=== PATIENT | female | born 1990 | race African-American/Black ===

== ENCOUNTER 2019-08-22 18:03 | Emergency (ER) | payer BC ==
[~2019-08-22] VITALS: Ht 149.9 cm; Wt 65.8 kg
[~2019-08-22 18:03] MED LIST: ALBU2.5V8 INH; BENZ100C PO; GUAI120L35 PO; PRED20TA PO
[2019-08-22 18:59] VITALS: BP 127/78
[2019-08-22] MEDS ORDERED: DEXAMETHASONE 4 MG TABLET PO STA (19:50)
[2019-08-22] MEDS ORDERED: OSEL75CA PO (19:56)
[2019-08-22] MEDS ORDERED: ONDA4TAB12 PO (19:56)
[2019-08-22] MEDS ORDERED: BENZ100C PO (19:56)
--- NOTE | 2019-08-22 19:57 | PHYS DOC ---
Past Medical History Past Medical History: No Pertinent History Past Surgical History: Tubal ligation Alcohol Use: Occasionally Drug Use: None Adult General Chief Complaint Chief Complaint: FLU SYMPTOM HPI HPI Patient is a 29 year old female who presents with headache, cough, sore throat, fevers, nausea, vomiting that started yesterday. Patient's that she is unsure what her fevers have been running at home she's not checked. The patient states her cough has been really bad. She states that she's also been having runny nose, congestion. Review of Systems Review of Systems Constitutional: Reports fever or chills [] Eyes: Denies change in visual acuity, redness, or eye pain [] HENT: Reports runny nose, nasal congestion and sore throat [] Respiratory: Reports cough. Cardiovascular: No additional information not addressed in HPI [] GI: Reports nausea, and vomiting. Denies abdominal pain, bloody stools or diarrhea [] : Denies dysuria or hematuria [] Musculoskeletal: Reports back pain and body aches. Integument: Denies rash or skin lesions [] Neurologic: Reports headache, denies focal weakness or sensory changes [] Endocrine: Denies polyuria or polydipsia [] Complete systems were reviewed and found to be within normal limits, except as documented in this note. Current Medications Current Medications Current Medications Medications (Trade) Dose Ordered Sig/Elise Start Time Stop Time Status Last Admin Dose Admin Dexamethasone (Decadron) 10 mg 1X STAT 08/22/19 19:50 08/22/19 19:58 DC Allergies Allergies Allergies Coded Allergies Type Severity Reaction Last Updated Verified bismuth subsalicylate Adverse Reaction Severe Anaphylaxis 04/11/19 Yes Physical Exam Physical Exam Constitutional: Well developed, well nourished, no acute distress, non-toxic appearance. [] HENT: Normocephalic, atraumatic, bilateral external ears normal, oropharynx moist, tonsils are 2+/4 with no oral exudates, nose normal. [] Eyes: PERRLA, EOMI, conjunctiva normal, no discharge. [] Neck: Normal range of motion, no tenderness, supple, no stridor. [] Cardiovascular:Heart rate regular rhythm, no murmur [] Lungs & Thorax: Bilateral breath sounds clear to auscultation [] Abdomen: Bowel sounds normal, soft, no tenderness, no masses, no pulsatile masses. [] Skin: Warm, dry, no erythema, no rash. [] Back: No tenderness, no CVA tenderness. [] Extremities: No tenderness, no cyanosis, no clubbing, ROM intact, no edema. [] Neurologic: Alert and oriented X 3, normal motor function, normal sensory function, no focal deficits noted. [] Psychologic: Affect normal, judgement normal, mood normal. [] Current Patient Data Vital Signs Vital Signs Date Time Temp Pulse Resp B/P (MAP) Pulse Ox O2 Delivery O2 Flow Rate FiO2 08/22/19 18:59 99.2 116 24 127/78 (94) 99 Room Air 99.2 EKG EKG [] Radiology/Procedures Radiology/Procedures [] Course & Med Decision Making Course & Med Decision Making Pertinent Labs and Imaging studies reviewed. (See chart for details) The patient appears to have the Flu. Will give Decadron to help with symptoms. Will also give prescriptions for Zofran, Tamiflu, and Tessalon Perles. Recommended to take Zyrtec over the counter. Dragon Disclaimer Dragon Disclaimer This electronic medical record was generated, in whole or in part, using a voice recognition dictation system. Departure Departure Impression: Primary Impression: Influenza Disposition: 01 HOME, SELF-CARE Condition: STABLE Referrals: NO PCP (PCP) Patient Instructions: Viral Syndrome Additional Instructions: Thank you for visiting [facility]. We appreciate you trusting us with your care. If any additional problems come up don't hesitate to return to visit us. Please follow up with your primary care provider so they can plan additional care if needed and know about the problem that you had. If symptoms worsen come back to the Emergency Department. Any concerning symptoms that start such as chest pain, shortness of air, weakness or numbness on one side of the body, running high fevers or any other concerning symptoms return to the ER. Please fill your medications at any pharmacy and follow the prescription instru ctions. Please take Zyrtec over the counter to help with symptoms. Scripts Prochlorperazine Maleate (Compazine) 10 Mg Tablet 1 TAB PO Q6HRS PRN for NAUSEA for 7 Days, #28 TAB 0 Refills Prov: MARGARITA ISRAEL APRN 08/22/19 Benzonatate (TESSALON PERLE) 100 Mg Capsule 100 MG PO TID PRN for COUGH, #21 CAP Prov: MARGARITA ISRAEL APRN 08/22/19 Oseltamivir Phosphate (TAMIFLU) 75 Mg Capsule 75 MG PO BID for FLU for 5 Days, #10 TAB 0 Refills Prov: MARGARITA ISRAEL APRN 08/22/19 Ondansetron (ONDANSETRON ODT) 4 Mg Tab.rapdis 1 TAB PO PRN Q6-8HRS PRN for NAUSEA, #16 TAB Prov: MARGARITA ISRAEL APRN 08/22/19 MARGARITA ISRAEL APRN Aug 22, 2019 19:57
[2019-08-22] MEDS ORDERED: PROC10TA57 PO (20:13)
== END 2019-08-22 20:07 | disposition home or self-care (01) ==
LOC: ER 18:03
DX: J10.1 Influenza due to other identified influenza virus with other respiratory manifestations (principal); R11.2 Nausea with vomiting, unspecified; J02.9 Acute pharyngitis, unspecified; R05 Cough; R50.9 Fever, unspecified; R09.89 Other specified symptoms and signs involving the circulatory and respiratory systems; R09.81 Nasal congestion; M54.9 Dorsalgia, unspecified; Z88.3 Allergy status to other anti-infective agents; Z98.51 Tubal ligation status
CPT/HCPCS: 99283; J8540

== ENCOUNTER 2019-09-05 16:12 | Emergency (ER) | payer BC ==
[~2019-09-05] VITALS: Ht 149.9 cm; Wt 63.5 kg
[~2019-09-05 16:12] MED LIST changes: +ONDA4TAB12 PO; +OSEL75CA PO; +PROC10TA57 PO
[2019-09-05 16:30] VITALS: BP 140/78
--- NOTE | 2019-09-05 16:37 | PHYS DOC ---
Past Medical History Past Medical History: No Pertinent History (JENNIFER DONAHUE APRN) Past Surgical History: Tubal ligation (JENNIFER DONAHUE APRN) Alcohol Use: Occasionally Drug Use: None (JENNIFER DONAHUE APRN) Adult General Chief Complaint Chief Complaint: COUGH HPI HPI Patient is a 29 year old female who presents to the ED today complaining of a cough for 2 weeks. Patient reports she was diagnosed with influenza 2 weeks ago and is still coughing. (JENNIFER DONAHUE APRN) Review of Systems Review of Systems Constitutional: Denies fever or chills [] Eyes: Denies change in visual acuity, redness, or eye pain [] HENT: Denies nasal congestion or sore throat [] Respiratory: Reports cough, shortness of breath [] Cardiovascular: No additional information not addressed in HPI [] GI: Denies abdominal pain, nausea, vomiting, bloody stools or diarrhea [] : Denies dysuria or hematuria [] Musculoskeletal: Denies back pain or joint pain [] Integument: Denies rash or skin lesions [] Neurologic: Denies headache, focal weakness or sensory changes [] All other systems were reviewed and found to be within normal limits, except as documented in this note. (JENNIFER DONAHUE APRN) Allergies Allergies Allergies Coded Allergies Type Severity Reaction Last Updated Verified bismuth subsalicylate Adverse Reaction Severe Anaphylaxis 04/11/19 Yes (MARGARITA ABRAHAM DO) Physical Exam Physical Exam Constitutional: Well developed, well nourished, no acute distress, non-toxic appearance. [] HENT: Normocephalic, atraumatic, bilateral external ears normal, oropharynx moist, no oral exudates, nose normal. [] Eyes: PERRLA, EOMI, conjunctiva normal, no discharge. [] Neck: Normal range of motion, no tenderness, supple, no stridor. [] Cardiovascular:Heart rate regular rhythm, no murmur [] Lungs & Thorax: Bilateral breath sounds clear to auscultation [] Abdomen: Bowel sounds normal, soft, no tenderness, no masses, no pulsatile masses. [] Skin: Warm, dry, no erythema, no rash. [] Back: No tenderness, no CVA tenderness. [] Extremities: No tenderness, no cyanosis, no clubbing, ROM intact, no edema. [] Neurologic: Alert and oriented X 3, normal motor function, normal sensory function, no focal deficits noted. [] Psychologic: Affect normal, judgement normal, mood normal. [] (JENNIFER DONAHUE APRN) Current Patient Data Vital Signs Vital Signs Date Time Temp Pulse Resp B/P (MAP) Pulse Ox O2 Delivery O2 Flow Rate FiO2 09/05/19 16:30 98.3 109 18 140/78 (98) 98 Room Air 98.3 (MARGARITA ABRAHAM DO) EKG EKG [] (JENNIFER DONAHUE APRN) Radiology/Procedures Radiology/Procedures [] (JENNIFER DONAHUE APRN) Course & Med Decision Making Course & Med Decision Making Pertinent Labs and Imaging studies reviewed. (See chart for details) This is a 29-year-old female patient presenting to the ED today complaining of a cough for 2 weeks. Patient reports she was diagnosed with influenza 2 weeks ago. Chest x-ray interpreted by Dr. Abraham is negative. Discharged to home. Provided a note for work. Follow-up with primary care doctor from the list with provided in 1-2 weeks (JENNIFER DONAHUE APRN) Dragon Disclaimer Dragon Disclaimer This electronic medical record was generated, in whole or in part, using a voice recognition dictation system. (JENNIFER DONAHUE APRN) Departure Departure Impression: Primary Impression: Cough in adult Disposition: 01 HOME, SELF-CARE Condition: STABLE Referrals: NO PCP (PCP) follow up in 1-2 weeks Patient Instructions: Cough, Adult, [id number] Additional Instructions: You were evaluated in the emergency room for a cough. It is not unusual after flu diagnosis to have a lingering cough. You can use [id number] remedies. Follow-up with a doctor from the list provided. Attending Signature Attending Signature I have reviewed the PA/MANAGER SECONDARY's note and plan of care. I was available for consultation as needed during the patient's visit in the emergency department. I agree with the clinical impression, plan, and disposition. (MARGARITA ABRAHAM DO) JENNIFER DONAHUE APRN Sep 05, 2019 16:37 MARGARITA ABRAHAM DO Sep 05, 2019 17:53
--- NOTE | 2019-09-05 18:19 | RAD ---
CHEST PA LATERAL History: Cough.. Cardiomediastinal silhouette is not enlarged. No evidence of pneumothorax, pleural effusion or consolidating infiltrate. Bones appear intact. IMPRESSION: No evidence of consolidating infiltrate. Electronically signed by: Leon Henderson MD (09/05/2019 6:16 PM) [id number]
== END 2019-09-05 17:25 | disposition home or self-care (01) ==
LOC: ER 16:12
DX: R05 Cough (principal); R06.02 Shortness of breath; Z98.51 Tubal ligation status; Z88.3 Allergy status to other anti-infective agents
CPT/HCPCS: 71046; 99284

== ENCOUNTER 2020-01-14 11:30 | Emergency (ER) | payer BC ==
[~2020-01-14] VITALS: Ht 149.9 cm; Wt 65.9 kg
[2020-01-14 11:58] VITALS: BP 132/72
[2020-01-14] MEDS ORDERED: PRED50TA PO (12:51)
--- NOTE | 2020-01-14 12:51 | PHYS DOC ---
Past Medical History Past Medical History: No Pertinent History Past Surgical History: Tubal ligation Smoking Status: Current Every Day Smoker Alcohol Use: Occasionally Drug Use: None General Adult EDM: Chief Complaint: SORE THROAT HPI: HPI: Patient is a 29 year old female who presents to the ED today complaining of a sore throat worse on the left side that began this morning. Patient denies any fever, cough, congestion, denies any concerns for COVID19. Review of Systems: Review of Systems: Constitutional: Denies fever or chills. [] Eyes: Denies change in visual acuity. [] HENT: Reports sore throat denies nasal congestion Respiratory: Denies cough or shortness of breath. [] Cardiovascular: Denies chest pain or edema. [] GI: Denies abdominal pain, nausea, vomiting, bloody stools or diarrhea. [] : Denies dysuria. [] Musculoskeletal: Denies back pain or joint pain. [] Integument: Denies rash. [] Neurologic: Denies headache, focal weakness or sensory changes. [] Psychiatric: Denies depression or anxiety. [] Heart Score: Risk Factors: Risk Factors: DM, Current or recent (<one month) smoker, HTN, HLP, family history of CAD, obesity. Risk Scores: Score 0 - 3: 2.5% MACE over next 6 weeks - Discharge Home Score 4 - 6: 20.3% MACE over next 6 weeks - Admit for Clinical Observation Score 7 - 10: 72.7% MACE over next 6 weeks - Early Invasive Strategies Allergies: Allergies: Allergies Coded Allergies Type Severity Reaction Last Updated Verified bismuth subsalicylate Adverse Reaction Severe Anaphylaxis 04/11/19 Yes Physical Exam: PE: Constitutional: Well developed, well nourished, no acute distress, non-toxic appearance. [] HENT: Normocephalic, atraumatic, bilateral external ears normal, oropharynx moist, no oral exudates, nose normal. [] Midline uvula, +2 tonsils bilaterally, no exudate, no erythema. Airways open. Eyes: PERRLA, EOMI, conjunctiva normal, no discharge. [] Neck: Normal range of motion, no tenderness, supple, no stridor. [] Cardiovascular:Heart rate regular rhythm, no murmur [] Lungs & Thorax: Bilateral breath sounds clear to auscultation [] Abdomen: Bowel sounds normal, soft, no tenderness, no masses, no pulsatile masses. [] Skin: Warm, dry, no erythema, no rash. [] Back: No tenderness, no CVA tenderness. [] Extremities: No tenderness, no cyanosis, no clubbing, ROM intact, no edema. [] Neurologic: Alert and oriented X 3, normal motor function, normal sensory function, no focal deficits noted. [] Psychologic: Affect normal, judgement normal, mood normal. [] Current Patient Data: Vital Signs: Vital Signs Date Time Temp Pulse Resp B/P (MAP) Pulse Ox O2 Delivery O2 Flow Rate FiO2 01/14/20 11:58 97.8 90 18 132/72 (92) 100 Room Air 97.8 EKG: EKG: [] Radiology/Procedures: Radiology/Procedures: [] Course & Med Decision Making: Course & Med Decision Making Pertinent Labs and Imaging studies reviewed. (See chart for details) This is a 29-year-old female presenting to the ED today with sore throat for 1 day. Negative rapid strep. Will be discharged with prednisone, salt water gargles also recommended. OTC pain relievers recommended. Given prescription for lidocaine viscous as well. Provided instructions to follow-up with ENT or PCP in 1 to 2 weeks. Return precautions provided. Ebonie Disclaimer: Ebonie Disclaimer: This electronic medical record was generated, in whole or in part, using a voice recognition dictation system. Departure Departure Impression: Primary Impression: Acute pharyngitis Qualified Codes: J02.9 - Acute pharyngitis, unspecified Disposition: HOME, SELF-CARE Condition: STABLE Referrals: NO PCP (PCP) TWILA SZYMANSKI MD follow up in 1 week Patient Instructions: Viral and Bacterial Pharyngitis Additional Instructions: You were seen for acute pharyngitis, your strep test is negative. Take the prescribed medications as ordered. Follow-up with your primary care doctor or the provided ENT in 1 to 2 weeks. Consider using salt water gargles as needed. Come back to the ED at any point symptoms worsen. Scripts Prednisone (PREDNISONE) 50 Mg Tablet 1 TAB PO DAILY, #5 TAB Prov: JENNIFER DONAHUE ELAV 01/14/20 GODFREYJENNIFER ELVA January 14, 2020 12:51
== END 2020-01-14 13:05 | disposition home or self-care (01) ==
LOC: ER 11:30
DX: J02.9 Acute pharyngitis, unspecified (principal); F17.200 Nicotine dependence, unspecified, uncomplicated; Z88.8 Allergy status to other drugs, medicaments and biological substances
CPT/HCPCS: 87070; 87880; 99283

== ENCOUNTER 2020-01-22 11:57 | Emergency (ER) | payer BC ==
[~2020-01-22 11:57] MED LIST changes: +PRED50TA PO
== END 2020-01-22 12:23 | disposition left against medical advice (07) ==
LOC: ER 11:57
DX: J02.9 Acute pharyngitis, unspecified (principal); R05 Cough; Z53.21 Procedure and treatment not carried out due to patient leaving prior to being seen by health care provider

== ENCOUNTER 2021-09-11 08:49 | Emergency (ER) | payer SELFPAY ==
[~2021-09-11] VITALS: Ht 149.9 cm; Wt 79.0 kg
[2021-09-11] MEDS ORDERED: DEXAMETHASONE 4 MG TABLET PO ONE (10:15)
--- NOTE | 2021-09-11 10:16 | PHYS DOC ---
Past Medical History Past Medical History: No Pertinent History Past Surgical History: No Surgical History Smoking Status: Current Every Day Smoker Alcohol Use: Occasionally Drug Use: None General Adult EDM: Chief Complaint: FLU SYMPTOM HPI: HPI: Patient is a 31 year old female who presents with Nasal congestion, headache, sinus pressure, postnasal drip, throat pain, body aches and headache for last day. She states she awoke this morning with 102 fever. She states this morning at 815 she took 2000 mg of Tylenol. She is not vaccinated for Covid. History of smoking. Rates her throat pain 8 out of 10. [] Review of Systems: Review of Systems: Constitutional: + fever or +chills. [] Eyes: Denies change in visual acuity. [] HENT: + nasal congestion or +sore throat. [] Respiratory: Denies cough or shortness of breath. [] Cardiovascular: Denies chest pain or edema. [] GI: Denies abdominal pain, nausea, vomiting, bloody stools or diarrhea. [] : Denies dysuria. [] Musculoskeletal: Denies back pain or +Generalized bodyaches joint pain. [] Integument: Denies rash. [] Neurologic: + headache, denies focal weakness or sensory changes. [] Endocrine: Denies polyuria or polydipsia. [] Lymphatic: Denies swollen glands. [] Psychiatric: Denies depression or anxiety. [] Heart Score: C/O Chest Pain: No Allergies: Allergies: Allergies Coded Allergies Type Severity Reaction Last Updated Verified bismuth subsalicylate Allergy Severe Anaphylaxis 09/11/21 Yes Physical Exam: PE: Constitutional: Well developed, well nourished, no acute distress, non-toxic appearance. [] HENT: Normocephalic, atraumatic, bilateral external ears normal, oropharynx moist, no oral exudates, nose normal. sinus pressure with palpation, throat reddened with 2+swelling and post nasal drip seen. Uvula mid line. [] Eyes: PERRLA, EOMI, conjunctiva normal, no discharge. [] Neck: Normal range of motion, no tenderness, supple, no stridor. [] Cardiovascular:Heart rate regular rhythm, no murmur [] Lungs & Thorax: Bilateral breath sounds clear to auscultation [] Abdomen: Bowel sounds normal, soft, no tenderness, no masses, no pulsatile masses. [] Skin: Warm, dry, no erythema, no rash. [] Back: No tenderness, no CVA tenderness. [] Extremities: No tenderness, no cyanosis, no clubbing, ROM intact, no edema. [] Neurologic: Alert and oriented X 3, normal motor function, normal sensory function, no focal deficits noted. [] Psychologic: Affect normal, judgement normal, mood normal. [] Current Patient Data: Vital Signs: Vital Signs Date Time Temp Pulse Resp B/P (MAP) Pulse Ox O2 Delivery O2 Flow Rate FiO2 09/11/21 10:00 98.0 76 16 118/56 (76) 98 Room Air 98.0 EKG: EKG: [] Radiology/Procedures: Radiology/Procedures: [] Impression: [facility] [address] [place] [address] IMAGING REPORT Signed PATIENT: JACQUES CAAL JACCOUNT: [id number] : 1990 LOCATION: ER AGE: 31 SEX: F EXAM STATUS: REG ER ORD. PHYSICIAN: MINOO JOSEPH APRN REASON: FEVER AND SORE THROAT, HEADACHE PROCEDURE: PORTABLE CHEST 1V Single view of the chest. 09/11/2021 11:23 AM Indication: Reason: FEVER AND SORE THROAT, HEADACHE / Comparison: Chest radiograph August 28, 2019 Findings: There is no focal consolidation. There is no pleural effusion or pneumothorax. The cardiomediastinal silhouette and pulmonary vasculature are within normal limits. No acute osseous abnormalities are seen. Impression: No evidence of acute cardiopulmonary process. Electronically signed by: Rosemary Brown MD (09/11/2021 12:02 PM) [id number] DICTATED and SIGNED BY: ROSEMARY BROWN MD DATE: 09/11/21 [id number] 0 Course & Med Decision Making: Course & Med Decision Making Pertinent Labs and Imaging studies reviewed. (See chart for details) COVID-19 CRITERIA: The patient was evaluated during the global COVID-19 pandemic, and that diagnosis was suspected/considered upon their initial presentation. Their evaluation, treatment and testing was consistent with current guidelines for patients who present with complaints or symptoms that may be related to COVID-19. See HPI. Alert and oriented x4. Ambulatory steady gait. Skin pink warm and dry. Lungs are clear to all station normal. Tonsils are 2+ swollen with some redness and uvula midline. Postnasal drip seen. No exudates. Abdomen soft and nontender. Sinus tenderness with palpation. Patient refusing to give urine. Denies being . Rapid strep negative. Chest x-ray is clear. Rapid Covid negative. Dragon Disclaimer: Dragon Disclaimer: This electronic medical record was generated, in whole or in part, using a voice recognition dictation system. COVID-19 Patient Risks: Age 65 or older: No Sign of co-morbidity: Yes Exp to person + for COVID: No Exp to PUI: No Travel from affected area: No Lower respiratory symptoms: No Fever: Yes Other: Yes (sore throat, bodyaches) PPE Use: Full PPE with N95 mask or PAPR: Yes Departure Departure Impression: Primary Impression: Strep throat Additional Impressions: Sinusitis Qualified Codes: J01.00 - Acute maxillary sinusitis, unspecified Person under investigation for COVID-19 Fever Qualified Codes: R50.9 - Fever, unspecified Disposition: HOME / SELF CARE / HOMELESS Condition: STABLE Referrals: NO PCP (PCP) Patient Instructions: Fever, Adult, Sinus Headache, Sinusitis, Sore Throat Additional Instructions: Follow-up with primary care provider. Covid send out test will be back in 24 to 48 hours they will call you if it is positive. I would quarantine until then. Take Tylenol and ibuprofen for pain and fever. Drink plenty of fluids to stay hydrated. Take medication as prescribed and with food. Scripts Fluconazole (DIFLUCAN) 150 Mg Tablet 1 TAB PO ONCE, #1 TAB Prov: MINOO JOSEPH PERSONAL ASSISTANT 09/11/21 Amoxicillin (AMOXICILLIN) 500 Mg Capsule 1 CAP PO BID, #20 CAP Prov: MINOO JOSEPH PERSONAL ASSISTANT 09/11/21 MINOO JOSEPH PERSONAL ASSISTANT Sep 11, 2021 10:16
[2021-09-11] MEDS ORDERED: KETOROLAC 60 MG/2 ML VIAL. IM ONE (11:30)
[2021-09-11] MEDS ORDERED: KETOROLAC 30 MG/ML VIAL. ONE (11:30)
--- NOTE | 2021-09-11 12:05 | RAD ---
Single view of the chest. 09/11/2021 11:23 AM Indication: Reason: FEVER AND SORE THROAT, HEADACHE / Comparison: Chest radiograph August 28, 2019 Findings: There is no focal consolidation. There is no pleural effusion or pneumothorax. The cardiome diastinal silhouette and pulmonary vasculature are within normal limits. No acute osseous abnormaliti es are seen. Impression: No evidence of acute cardiopulmonary process. Electronically signed by: Farshad Ervin MD (09/11/2021 12:02 PM) [id number]
[2021-09-11] MEDS ORDERED: AMOX500C PO (12:12)
[2021-09-11] MEDS ORDERED: FLUC150T PO (12:27)
[2021-09-11 12:31] VITALS: BP 127/81
== END 2021-09-11 12:33 | disposition home or self-care (01) ==
LOC: ER 08:49
DX: J02.0 Streptococcal pharyngitis (principal); B95.5 Unspecified streptococcus as the cause of diseases classified elsewhere; J01.00 Acute maxillary sinusitis, unspecified; R50.9 Fever, unspecified; Z20.822 Contact with and (suspected) exposure to COVID-19; F17.200 Nicotine dependence, unspecified, uncomplicated; Z88.8 Allergy status to other drugs, medicaments and biological substances
CPT/HCPCS: 71045; 87426; 87880; 96372; 99284; J1885; U0003; U0005

== ENCOUNTER 2021-10-18 15:20 | Emergency (ER) | payer SELFPAY ==
[~2021-10-18] VITALS: Ht 149.9 cm; Wt 72.0 kg
[~2021-10-18 15:20] MED LIST changes: +AMOX500C PO; +FLUC150T PO
[2021-10-18 15:30] VITALS: BP 127/59
--- NOTE | 2021-10-18 15:48 | PHYS DOC ---
Past Medical History Past Medical History: No Pertinent History Past Surgical History: No Surgical History Smoking Status: Current Every Day Smoker Alcohol Use: Occasionally Drug Use: None General Adult HPI: HPI: Patient is a 31-year-old female who presents to the emergency department with a nonproductive cough with shortness of breath, body aches, nausea, vomiting, diarrhea, nasal congestion, headache, fevers and chest wall pain with coughing that started 3 days ago. Patient reports that she was around someone who has COVID-19. Denies chest pain at rest. Review of Systems: Review of Systems: Constitutional: negative unless reported in HPI Eyes: negative unless reported in HPI HENT: negative unless reported in HPI Respiratory: negative unless reported in HPI Cardiovascular: negative unless reported in HPI GI: negative unless reported in HPI : negative unless reported in HPI Musculoskeletal: negative unless reported in HPI Integument: negative unless reported in HPI Neurologic: negative unless reported in HPI Endocrine: negative unless reported in HPI Lymphatic: negative unless reported in HPI Psychiatric: negative unless reported in HPI Heart Score: C/O Chest Pain: No Risk Factors: Risk Factors: DM, Current or recent (<one month) smoker, HTN, HLP, family history of CAD, obesity. Risk Scores: Score 0 - 3: 2.5% MACE over next 6 weeks - Discharge Home Score 4 - 6: 20.3% MACE over next 6 weeks - Admit for Clinical Observation Score 7 - 10: 72.7% MACE over next 6 weeks - Early Invasive Strategies Allergies: Allergies: Allergies Coded Allergies Type Severity Reaction Last Updated Verified bismuth subsalicylate Allergy Severe Anaphylaxis 09/11/21 Yes Physical Exam: PE: Constitutional: Well developed, well nourished, no acute distress, non-toxic appearance. [] HENT: Normocephalic, atraumatic, bilateral external ears normal, oropharynx moist, no oral exudates, nose normal. [] Eyes: PERRL, EOMI, conjunctiva normal, no discharge. [] Neck: Normal range of motion, no stridor Cardiovascular:Heart rate regular rhythm, no murmur [] Lungs & Thorax: Bilateral breath sounds clear to auscultation [] Abdomen: Bowel sounds normal, soft, no tenderness, no masses, no pulsatile masses. [] Skin: Warm, dry, no erythema, no rash. [] Back: Normal range of motion Extremities: No tenderness, no cyanosis, no clubbing, ROM intact, no edema. [] Neurologic: Alert and oriented X 3, normal motor function, normal sensory function, no focal deficits noted. [] Psychologic: Affect normal, judgement normal, mood normal. [] Current Patient Data: Labs: Laboratory Tests Test 10/18/21 15:40 10/18/21 16:19 Influenza Type A Antigen Negative Influenza Type B Antigen Negative SARS-CoV-2 Antigen (Rapid) Negative Bedside Urine HCG, Qualitative Hcg negative EKG: EKG: [] Radiology/Procedures: Radiology/Procedures: []PROCEDURE: PORTABLE CHEST 1V EXAM: Chest, single view. HISTORY: Cough. Shortness of air. COMPARISON: None. FINDINGS: A frontal view of the chest is obtained. There is no infiltrate, pleural effusion or pneumothorax. The heart is normal in size. IMPRESSION: No acute pulmonary finding. Electronically signed by: Nae Vega MD (10/18/2021 4:28 PM) [id number] DICTATED and SIGNED BY: NAE VEGA MD DATE: 10/18/21 [id number] Course & Med Decision Making: Course & Med Decision Making Pertinent Labs and Imaging studies reviewed. (See chart for details) [] Patient presents to the emergency department for multiple COVID-19 related symptoms including cough, shortness of breath, nausea, vomiting, diarrhea, fevers, nasal congestion. Patient will be tested for influenza and COVID. Chest x-ray performed due to complaints of shortness of breath and cough to rule out pneumonia. Patient's vital signs are stable and her lung sounds are clear. Rapid COVID and influenza test was negative. Chest x-ray did not show any acute findings. I discussed with patient all findings and diagnostic testing as well as the need to follow-up with PCP for further evaluation and treatment or return to the ER if any new or worsening symptoms. Strict return precautions were also discussed at length. Patient voiced understanding and agreement with the plan. Patient is hemodynamically stable at the time of disposition. Dragon Disclaimer: Ebonie Disclaimer: This electronic medical record was generated, in whole or in part, using a voice recognition dictation system. Departure Departure Impression: Primary Impression: Viral syndrome Disposition: HOME / SELF CARE / HOMELESS Condition: GOOD Referrals: NO PCP (PCP) Patient Instructions: Cough, Adult Additional Instructions: You were seen in the emergency department for multiple complaints. Your rapid influenza test was negative, your rapid Covid test was negative. We performed a chest x-ray to rule out pneumonia and this showed no acute findings. You are being discharged home with an albuterol inhaler that you can use for shortness of breath and cough medication that you can use as needed. Take Tylenol and/ibuprofen for any pain or fevers. For nasal congestion you can take Mucinex [id number]. Follow-up with your primary care provider tomorrow regarding your ER visit. Return to the emergency department if you develop high fevers refractory to treatment, tractable nausea vomiting, chest pain, shortness of breath, weakness. Scripts Albuterol Sulfate (Proair Hfa) 8.5 Gm Hfa.aer.ad 2 PUFF IH PRN Q4-6HRS PRN for wheezing for 21 Days, #1 INHALER 0 Refills Prov: [employer] 10/18/21 Benzonatate (BENZONATATE) 100 Mg Capsule 1 CAP PO TID for 7 Days, #21 CAP 0 Refills Prov: [employer] 10/18/21 [employer] Oct 18, 2021 15:48
[2021-10-18 16:14] LABS: INFLUENZA A PATIENT NEGATIVE (NEGATIVE); INFLUENZA B PATIENT NEGATIVE (NEGATIVE)
--- NOTE | 2021-10-18 16:31 | RAD ---
EXAM: Chest, single view. HISTORY: Cough. Shortness of air. COMPARISON: None. FINDINGS: A frontal view of the chest is obtained. There is no infiltrate, pleural effusion or pneumo thorax. The heart is normal in size. IMPRESSION: No acute pulmonary finding. Electronically signed by: Nae Vega MD (10/18/2021 4:28 PM) [id number]
[2021-10-18] MEDS ORDERED: BENZ-8 PO (16:35)
[2021-10-18] MEDS ORDERED: ALBU2.5V8 IH (16:35)
--- NOTE | 2021-10-19 16:36 | NUR ---
IP: Attempted to contact pt concerning covid results. No answer, left a voicemail to return the call. Addendum: 10/19/21 at 1712 by CARMENZA MEDINA RN IP: Pt returned my call. Informed pt of negative covid test. Pt verbalized understanding.
== END 2021-10-18 16:48 | disposition home or self-care (01) ==
LOC: ER 15:20
DX: B34.9 Viral infection, unspecified (principal); F17.200 Nicotine dependence, unspecified, uncomplicated; Z20.822 Contact with and (suspected) exposure to COVID-19; Z88.8 Allergy status to other drugs, medicaments and biological substances
CPT/HCPCS: 71045; 81025; 87428; 99284; C9803; U0003